=== PATIENT | male | born 1985 | race African-American/Black ===

== ENCOUNTER 2017-11-08 17:13 | Emergency (ER) | payer OTHER, SELFPAY ==
[~2017-11-08] VITALS: Ht 172.7 cm; Wt 81.6 kg
[2017-11-08 17:20] VITALS: BP 176/110
[2017-11-08] MEDS ORDERED: Ketorolac 60mg Inj IM ONE (19:00)
[2017-11-08 19:20] VITALS: BP 165/104
[2017-11-08] MEDS ORDERED: NAPROXEN500 M2 ORAL (20:00)
[2017-11-08 20:40] VITALS: BP 161/99
[2017-11-08 20:45] VITALS: BP 162/112
[2017-11-08] MEDS ORDERED: cloNIDine 0.2mg Tab ORAL ONE (20:45)
--- NOTE | 2017-11-08 22:19 | Emergency Room Report ---
History of Present Illness General Chief Complaint: Headache Source: Patient, EMS Present Illness HPI The patient is a 31-year-old male with a history of hypertension presenting for headache. He has headache for past 3 days without known cause. He was seen at another emergency department for the same complaint but states he was not helped. Pain is a 10 out of 10 dull ache to the entire head. No known provoking or alleviating factors. He denies other symptoms including nausea, vomiting, dizziness, blurred vision, neck pain or stiffness, fever, chills Allergies: Coded Allergies: No Known Allergies (Unverified , 11/08/17) Patient History Past Medical History: see triage record Pertinent Family History: none Reviewed Nursing Documentation: PMH: Agreed, PSxH: Agreed Nursing Documentation-PMH Past Medical History: No History, Except For Hx Cardiac Problems: Yes - CHF Hx Hypertension: Yes Review of Systems All Other Systems: negative except mentioned in HPI Physical Exam Vital Signs Date Time Temp Pulse Resp B/P (MAP) Pulse Ox O2 Delivery O2 Flow Rate FiO2 11/08/17 17:10 88 18 176/110 99 Room Air Sp02 EP Interpretation: reviewed, normal General Appearance: no apparent distress, alert, GCS 15, non-toxic Head: normocephalic, atraumatic Eyes: bilateral eye normal inspection, bilateral eye PERRL ENT: hearing grossly normal, normal pharynx, no angioedema, normal voice, uvula midline Neck: full range of motion, supple/symm/no masses Respiratory: chest non-tender, lungs clear, normal breath sounds, speaking full sentences Cardiovascular #1: regular rate, rhythm, no edema Musculoskeletal: back normal, gait/station normal, normal range of motion, non- tender Neurologic: alert, oriented x3, responsive, motor strength/tone normal, sensory intact, speech normal Psychiatric: judgement/insight normal, memory normal, mood/affect normal, no suicidal/homicidal ideation Skin: normal color, no rash, warm/dry, well hydrated Lymphatic: no adenopathy Medical Decision Making PA Attestation Dr. Ramos is my supervising physician. Patient management was discussed with my supervising physician Diagnostic Impression: Primary Impression: Headache Qualified Codes: R51 - Headache Additional Impression: Hypertension Qualified Codes: I10 - Essential (primary) hypertension ER Course The patient is a 31-year-old male with a history of hypertension presenting for headache Differential diagnoses include but not limited to Migraine, tension headache, HTN, HTN emergency, among others PE: Significant HTN. Afebrile. NAD PERRL. EOMI Neck soft and supple. RRR Lungs CTA bilat He is given IM toradol and is feeling much better. He is also given clonidine for HTN He will Be dc'ed home and FU with PMD for HTN management GIOVANI. ER precautions given Last Vital Signs Date Time Temp Pulse Resp B/P (MAP) Pulse Ox O2 Delivery O2 Flow Rate FiO2 11/08/17 19:21 176/110 11/08/17 17:20 18 99 Room Air 11/08/17 17:10 88 Status: improved Disposition: HOME, SELF-CARE Condition: Improved Scripts Naproxen* (NAPROXEN*) 500 Mg Tablet 500 MG ORAL TWICE A WEEK, #60 TAB 0 Refills Prov: SAMUEL GARCIA 11/08/17 Referrals: NOT CHOSEN IPA/MD,REFERRING (PCP) Patient Instructions: General Headache Without Cause, Hypertension Additional Instructions: I discussed my findings with the patient. All questions and concerns have been answered. Treatment and medication compliance have been addressed. I advised the patient that they need to follow up with PMD in 3-5 days. Return to ED if symptoms worsen, new symptoms arise, or if needed for any reason. Patient verbalized understanding of discharge instructions. SAMUEL GARCIA Nov 08, 2017 22:19
== END 2017-11-08 20:45 | disposition home or self-care (01) ==
LOC: EDBD 17:13 → EMR 18:21
DX: R51 Headache (principal); I11.0 Hypertensive heart disease with heart failure; I50.9 Heart failure, unspecified
CPT/HCPCS: 96372; 99284

== ENCOUNTER 2017-11-10 01:32 | Emergency (ER) | payer OTHER ==
[~2017-11-10] VITALS: Ht 175.3 cm; Wt 72.6 kg
[~2017-11-10 01:32] MED LIST: NAPROXEN500 M2 ORAL
--- NOTE | 2017-11-10 02:44 | Emergency Room Report ---
History of Present Illness General Chief Complaint: Flu Like Symptoms Source: Patient Present Illness HPI 31-year-old m, former smoker, presenting with shortness of breath for 2 days. States a history congested. The formal diagnosis of asthma or COPD but states that he smokes a lot. Complaining of shortness of breath, cough nonproductive. No fever no chills no chest pain Allergies: Coded Allergies: No Known Allergies (Unverified , 11/08/17) Patient History Past Medical History: see triage record Past Surgical History: none Pertinent Family History: none Reviewed Nursing Documentation: PMH: Agreed, PSxH: Agreed Nursing Documentation-PMH Hx Cardiac Problems: Yes - CHF Hx Hypertension: Yes Review of Systems All Other Systems: negative except mentioned in HPI Physical Exam Vital Signs Date Time Temp Pulse Resp B/P (MAP) Pulse Ox O2 Delivery O2 Flow Rate FiO2 11/10/17 01:30 99.3 128 18 179/106 95 Room Air Sp02 EP Interpretation: reviewed, normal General Appearance: other - tired appearing male, sob but speaking in coplete sentences Head: normocephalic, atraumatic Eyes: bilateral eye normal inspection, bilateral eye PERRL, bilateral eye EOMI ENT: normal ENT inspection, normal pharynx, normal voice, moist mucus membranes Neck: normal inspection, full range of motion, supple Respiratory: other - mild exp wheezing b/l Cardiovascular #1: normal inspection, regular rate, rhythm, no edema, normal capillary refill Cardiovascular #2: 2+ radial (R), 2+ radial (L) Gastrointestinal: normal inspection, non tender, soft, non-distended, no guarding Genitourinary: no CVA tenderness Musculoskeletal: normal inspection, back normal, normal range of motion, non- tender Neurologic: normal inspection, alert, oriented x3, responsive, motor strength/ tone normal, sensory intact, normal gait, speech normal Psychiatric: normal inspection, judgement/insight normal, memory normal Skin: normal inspection, normal color, no rash, warm/dry, well hydrated, normal turgor Medical Decision Making Diagnostic Impression: Primary Impression: Upper respiratory infection Additional Impression: Wheezing ER Course 31-year-m former smoker, no formal diagnosis of COPD, or asthma, presenting with shortness of breath Found to be wheezing DDX: Asthma exacerbation, upper respiratory infection/viral syndrome Plan: Combivent nebulizer treatment x 3, steroids ER Course: Patient has been treated with combivent x 3, steroids Patient's overall respiratory status has improved in ED. Patient states improvement of symptoms. Patient continues to speak in complete sentences and is not in respiratory distress. Repeat lung auscultation: good air entry with minimal/no wheezing. Disposition: Patient will be discharged to home with course of steroids albuterol inhaler Strict precautions are discussed with patient on when to emergently return to the ED including: persistent or worsening SOB, chest pain, fever, chills, which could indicate severe illness. Patient verbalized understanding. Patient is to follow up with her/his PMD within 5 days. Patient agrees with plan. Please note that this Emergency Department Report was dictated using [employer] director technology software, occasionally this can lead to erroneous entry secondary to interpretation by the dictation equipment. Last Vital Signs Date Time Temp Pulse Resp B/P (MAP) Pulse Ox O2 Delivery O2 Flow Rate FiO2 11/10/17 01:30 99.3 128 18 179/106 95 Room Air Disposition: HOME, SELF-CARE Condition: Improved Scripts Prednisone* (PREDNISONE*) 20 Mg Tablet 40 MG ORAL DAILY for 5 Days, #10 TAB 0 Refills Prov: Dania Ramos M.D. 11/10/17 Albuterol Sulfate* (ALBUTEROL SULFATE MDI*) 8.5 Gm Hfa.aer.ad 2 PUFF INH Q4H Y for cough/wheezing, #1 EA 0 Refills Prov: Dania Ramos M.D. 11/10/17 Patient Instructions: Upper Respiratory Infection, Adult, [id number] Dania Ramos M.D. Nov 10, 2017 02:44
[2017-11-10] MEDS: Ipratropium 0.02% Inh Soln 2.5ml UD HHN SCH ×3 (02:53→03:41)
[2017-11-10] MEDS: Albuterol ud Inhalation HHN SCH ×3 (02:54→03:41)
[2017-11-10] MEDS ORDERED: ALBUTEROL SULF8.5 GM INH (03:44)
[2017-11-10] MEDS ORDERED: PREDNISONE20 MG ORAL (03:44)
[2017-11-10 04:03] VITALS: BP 148/96
[2017-11-10 04:09] VITALS: BP 188/103
[2017-11-10 04:43] VITALS: BP 188/103
--- NOTE | 2017-11-10 11:07 | Diagnostic Imaging Report ---
Indication: Dyspnea Comparison: 09/08/10 A single view chest radiograph was obtained. Findings: Vascular and interstitial prominence demonstrated with cardiomegaly, findings likely due to CHF. Please correlate clinically. There is airspace disease at the right lung base also demonstrated. Bones are unremarkable. IMPRESSION: Suspicion of left heart failure. Please correlate clinically. Superimposed pneumonia at the right lung base not excluded although the finding could be related to CHF. Follow-up and clinical correlation are recommended.
== END 2017-11-10 04:45 | disposition home or self-care (01) ==
LOC: EDBD 01:32 → EMR 02:10
DX: J06.9 Acute upper respiratory infection, unspecified (principal); R06.2 Wheezing; I50.9 Heart failure, unspecified; I10 Essential (primary) hypertension; Z87.891 Personal history of nicotine dependence
CPT/HCPCS: 71010; 94640; 94664; 99284